=== PATIENT | female | born 1995 | race Two or more races ===

== ENCOUNTER 2022-07-04 14:48 | Emergency (ER) | payer OTHER, SELFPAY ==
[2022-07-04 15:25] VITALS: BP 108/63; PULSE 84; RESP 18; TEMP 36.7; O2SAT 98; BMI 17.9
--- NOTE | 2022-07-04 15:25 | ED_ITS ---
HPI - General Adult General Chief complaint: Nausea/Vomiting/Diarrhea <ROMANA Desai - Last Filed: 07/04/22 15:28> Stated complaint: Vomiting/Body aches/Tingling hands <ROMANA Desai - Last Filed: 07/04/22 15:28> Time Seen by Provider: 07/04/22 18:59 <ROMANA Desai - Last Filed: 07/04/22 15:28> Source: patient, RN notes reviewed and old records reviewed <James Ramirez - Last Filed: 07/04/22 19:11> Mode of arrival: ambulatory <James Ramirez - Last Filed: 07/04/22 19:11> Limitations: no limitations <James Ramirez - Last Filed: 07/04/22 19:11> History of Present Illness HPI narrative: 26-year-old female who denies any past medical history presents for evaluation of vomiting. Patient reports that she started vomiting last night around 6:00 p.m., about 24 hours ago. The symptoms progressed throughout the night and into today. She denies any abdominal pain, fevers. She states that this morning she was unable to keep anything down including water She was also experiencing ?tingling in my hands whenever I touched anything but that has gone away. ? Patient states that since she has been in the ER she has been able to tolerate chela ashwin without any further nausea or vomiting No other complaints or concerns at this time <James Ramirez - Last Filed: 07/04/22 19:11> Related Data Home medications: Previous Rx's Medication Instructions Recorded ondansetron 4 mg disintegrating 4 mg PO Q8H PRN nausea and 07/04/22 tablet vomiting #20 tabs <ROMANA Desai - Last Filed: 07/04/22 15:28> Allergies/adverse reactions: Allergies Allergy/AdvReac Type Severity Reaction Status Date / Time No Known Allergies Allergy Verified 07/04/22 15:28 <ROMANA Desai - Last Filed: 07/04/22 15:28> Review of Systems Constitutional: Constitutional: Reports as per HPI, Denies chills, Denies fatigue, Denies fever(s) and Denies headache(s) <James Ramirez - Last Filed: 07/04/22 19:11> ENT: Denies headache(s) < Last Filed: 07/04/22 19:11> Cardiovascular: Cardiovascular: Denies chest pain and Denies dyspnea < Last Filed: 07/04/22 19:11> Respiratory: Respiratory: Denies cough and Denies dyspnea < - Last Filed: 07/04/22 19:11> Gastrointestinal: Gastrointestinal: Denies abdominal pain, Denies constipation, Reports nausea and Reports vomiting < Last Filed: 07/04/22 19:11> Genitourinary: Genitourinary: Denies dysuria < Last Filed: 07/04/22 19:11> Neurologic: Denies headache(s) and Denies focal weakness < Last Filed: 07/04/22 19:11> Endocrine: Endocrine: Denies fatigue < Last Filed: 07/04/22 19:11> [facility] Social History Social History: Social History Alcohol intake: current Alcohol intake frequency: a few times a month Alcohol type: wine Smoked in Last 30 Days: No Use of substances other than those prescribed or required for medical reasons: No Advance Directives: No Advance Directives Information Provided: No <ROMANA Desai - Last Filed: 07/04/22 15:28> Physical Exam ED Vital Signs: Vital Signs - 24 hr 07/04/22 15:25 07/04/22 18:21 Temperature 98.0 F 98.2 F Pulse Rate 84 91 Respiratory Rate 18 18 Blood Pressure 108/63 111/64 Pulse Oximetry 98 100 Oxygen Delivery Method Room Air Room Air BMI result Body Mass Index 17.9 <ROMANA Desai - Last Filed: 07/04/22 15:28> Vital Signs - 24 hr 07/04/22 15:25 07/04/22 18:21 Temperature 98.0 F 98.2 F Pulse Rate 84 91 Respiratory Rate 18 18 Blood Pressure 108/63 111/64 Pulse Oximetry 98 100 Oxygen Delivery Method Room Air Room Air BMI result Body Mass Index 17.9 <James FaustinCrawford - Last Filed: 07/04/22 19:11> Const General: healthy appearing, comfortable, no acute distress, alert and awake < - Last Filed: 07/04/22 19:11> Nutritional Appearance: well nourished < Last Filed: 07/04/22 19:11> Orientation/consciousness: patient oriented x3 < Last Filed: 07/04/22 19:11> HENMT Head: Yes normocephalic and Yes atraumatic < - Last Filed: 07/04/22 19:11> Throat: Yes posterior oropharynx normal < - Last Filed: 07/04/22 19:11> Eyes Eyelids: Yes eyelids normal < Last Filed: 07/04/22 19:11> Conjunctivae: conjunctivae normal < Last Filed: 07/04/22 19:11> Sclerae: sclerae normal < Last Filed: 07/04/22 19:11> Corneas: corneas normal < Last Filed: 07/04/22 19:11> Pupils: Equal, round and reactive pupils present < Last Filed: 07/04/22 19:11> EOM: EOMs intact bilaterally < Last Filed: 07/04/22 19:11> Neck Neck: Yes full ROM < Last Filed: 07/04/22 19:11> Resp Effort & Inspection: normal respiratory effort, able to speak in complete sentences, no audible wheezes and not labored < Last Filed: 07/04/22 19:11> Auscultation: clear to auscultation bilaterally < Last Filed: 07/04/22 19:11> Cardio Rate: regular rate < Last Filed: 07/04/22 19:11> Rhythm: regular rhythm < - Last Filed: 07/04/22 19:11> GI Inspection: No distended < Last Filed: 07/04/22 19:11> Palpation (GI): Soft to palpation, not firm, nontender, no guarding and not rigid <James Ortizy - Last Filed: 07/04/22 19:11> Auscultation: normoactive bowel sounds <James Ortizy - Last Filed: 07/04/22 19:11> Skin General skin exam: no rashes or lesions noted and elasticity normal <Jamesparag Ortiz Last Filed: 07/04/22 19:11> Neuro General: patient oriented x3 <Jamesparag Ortizy - Last Filed: 07/04/22 19:11> Cranial nerves: Yes CN's II-XII intact bilaterally, Yes Equal, round and reactive pupils present and Yes Bilaterally intact EOM present <Jamesparag Ortiz Last Filed: 07/04/22 19:11> Cognition (Neuro): normal cognition <Jamesparag Ortiz Last Filed: 07/04/22 19:11> Extrem Other: Moving all extremities well without any obvious deformities <James Ramirez Last Filed: 07/04/22 19:11> Course Course Course Narrative: RME performed by Merly Evans PA-C. Patient is a 26 year old assigned female at presenting to the emergency department with nausea and vomiting. Labs and a swab ordered. Patient placed back in the waiting room pending room availability and results. <ROMANA Desai - Last Filed: 07/04/22 15:28> Medical Decision Making Medical Decision Making MDM Narrative: 26-year-old male in for evaluation of vomiting. Upon my evaluation she reports that all her symptoms have resolved. She had further nausea, she will drink chela ashwin. She denies any numbness, tingling, dizziness. Her labs are reviewed without any significant abnormality. The patient is not . I discussed all findings with the patient. She is requesting discharge as her workup is unremarkable. I have low suspicion for surgical abdomen she is nontender, currently asymptomatic. Will discharge patient with Zofran and she will follow-up with her PCP <James FaustinManoj Last Filed: 07/04/22 19:11> Differential Diagnosis Acute nausea/vomiting Viral gastroenteritis Peptic ulcer disease Cannabis hyperemesis syndrome <James Ramirez - Last Filed: 07/04/22 19:11> Lab Data Result Diagrams: 07/04/22 15:39 07/04/22 15:39 <ROMANA Desai - Last Filed: 07/04/22 15:28> Labs: Lab Results 07/04/22 07/04/22 07/04/22 Range/Units 15:39 15:39 15:39 WBC 5.8 (4.8-10.8) X10*3/uL RBC 4.28 (4.20-5.50) X10*6/uL Hgb 13.1 (12.0-16.0) g/dl Hct 38.4 (37.0-47.0) % MCV 89.7 (80.0-98.0) fL MCH 30.6 (27.0-33.0) pg MCHC 34.1 (31.0-35.0) g/dl RDW 11.7 (11.0-16.0) % Plt Count 226 (160-400) X10*3/uL MPV 9.8 (9.4-12.3) fL Immature Gran % (Auto) 0.2 (0.0-0.4) % Neut % (Auto) 82.7 H (45-73) % Lymph % (Auto) 10.7 L (20-40) % Sioux % (Auto) 6.4 (2-11) % Eos % (Auto) 0.0 (0-4) % Baso % (Auto) 0.0 (0-2) % Lymph # (Auto) 0.6 L (1.2-4.9) X10*3/uL [place] # (Auto) 0.4 (0.1-1.2) X10*3/uL Eos # (Auto) 0.0 (0.0-0.4) X10*3/uL Baso # (Auto) 0.0 (0.0-0.2) X10*3/uL Abs Immat Gran (auto) 0.01 (0.00-0.03) X10*3/uL Absolute Neuts (auto) 4.8 (2.0-8.3) x10*3/uL Absolute Nucleated RBC 0.000 (0.0-0.012) X10*3/uL Nucleated RBC % (auto) 0.0 (0.0-0.2) /100WBC Sodium 138 (135-145) mmol/L Potassium 3.6 (3.3-5.1) mmol/L Chloride 104 (96-108) mmol/L Carbon Dioxide 24 (22-29) mmol/L Anion Gap 14 (12-20) BUN 8 L (9-16) mg/dL Creatinine 0.72 (0.5-1.4) mg/dL Estim Creat Clear Calc 76.8 Estimated GFR > 60 Random Glucose 92 (60-115) mg/dL Calcium 8.7 (8.4-10.2) mg/dL Magnesium 2.1 (1.6-2.6) mg/dL Total Bilirubin 0.6 (0.0-1.0) mg/dL AST 17 (5-31) U/L ALT 7 (0-31) U/L Alkaline Phosphatase 83 (39-117) U/L Total Protein 7.1 (6.5-8.0) g/dL Albumin 4.2 (3.5-5.0) g/dL Beta HCG, Quant < 2 mIU/mL COVID-19 ([facility]) Negative (Negative) COVID-19 Clin Com See Note <ROMANA Desai - Last Filed: 07/04/22 15:28> Lab Results 07/04/22 07/04/22 07/04/22 Range/Units 15:39 15:39 15:39 WBC 5.8 (4.8-10.8) X10*3/uL RBC 4.28 (4.20-5.50) X10*6/uL Hgb 13.1 (12.0-16.0) g/dl Hct 38.4 (37.0-47.0) % MCV 89.7 (80.0-98.0) fL MCH 30.6 (27.0-33.0) pg MCHC 34.1 (31.0-35.0) g/dl RDW 11.7 (11.0-16.0) % Plt Count 226 (160-400) X10*3/uL MPV 9.8 (9.4-12.3) fL Immature Gran % (Auto) 0.2 (0.0-0.4) % Neut % (Auto) 82.7 H (45-73) % Lymph % (Auto) 10.7 L (20-40) % Sioux % (Auto) 6.4 (2-11) % Eos % (Auto) 0.0 (0-4) % Baso % (Auto) 0.0 (0-2) % Lymph # (Auto) 0.6 L (1.2-4.9) X10*3/uL Sioux # (Auto) 0.4 (0.1-1.2) X10*3/uL Eos # (Auto) 0.0 (0.0-0.4) X10*3/uL Baso # (Auto) 0.0 (0.0-0.2) X10*3/uL Abs Immat Gran (auto) 0.01 (0.00-0.03) X10*3/uL Absolute Neuts (auto) 4.8 (2.0-8.3) x10*3/uL Absolute Nucleated RBC 0.000 (0.0-0.012) X10*3/uL Nucleated RBC % (auto) 0.0 (0.0-0.2) /100WBC Sodium 138 (135-145) mmol/L Potassium 3.6 (3.3-5.1) mmol/L Chloride 104 (96-108) mmol/L Carbon Dioxide 24 (22-29) mmol/L Anion Gap 14 (12-20) BUN 8 L (9-16) mg/dL Creatinine 0.72 (0.5-1.4) mg/dL Estim Creat Clear Calc 76.8 Estimated GFR > 60 Random Glucose 92 (60-115) mg/dL Calcium 8.7 (8.4-10.2) mg/dL Magnesium 2.1 (1.6-2.6) mg/dL Total Bilirubin 0.6 (0.0-1.0) mg/dL AST 17 (5-31) U/L ALT 7 (0-31) U/L Alkaline Phosphatase 83 (39-117) U/L Total Protein 7.1 (6.5-8.0) g/dL Albumin 4.2 (3.5-5.0) g/dL Beta HCG, Quant < 2 mIU/mL COVID-19 ([facility]) Negative (Negative) COVID-19 Clin Com See Note <James Ramirez - Last Filed: 07/04/22 19:11> Discharge Plan Discharge Clinical Impression: Gastroenteritis <ROMANA Desai - Last Filed: 07/04/22 15:28> Patient Disposition: Home, Self-Care <ROMANA Desai - Last Filed: 07/04/22 15:28> Instructions: Acute Nausea and Vomiting (ED) <ROMANA Desai - Last Filed: 07/04/22 15:28> Additional Instructions: Drink lots of fluids, small sips at a time. Take ondansetron as needed for nausea and vomiting. Return for any new or worsening symptoms, especially fever, severe abdominal pains <ROMANA Desai - Last Filed: 07/04/22 15:28> Prescriptions: New ondansetron 4 mg tablet,disintegrating 4 mg PO Q8H PRN (Reason: nausea and vomiting) Qty: 20 0RF <ROMANA Desai - Last Filed: 07/04/22 15:28>
[2022-07-04 15:45] LABS: MANUAL DIFF FLAG NO
[2022-07-04 15:47] LABS: Hematocrit 38.4 % (37.0-47.0); Hemoglobin 13.1 g/dl (12.0-16.0); Imm Gran Abs Auto 0.01 X10*3/uL (0.00-0.03); Imm Gran Pct Auto 0.2 % (0.0-0.4); Lymphocytes Absolute Auto 0.6 X10*3/uL (1.2-4.9); Lymphocytes Percent Auto 10.7 % (20-40); Mean Corpuscular HGB Conc 34.1 g/dl (31.0-35.0); Mean Corpuscular Hemoglobin 30.6 pg (27.0-33.0); Mean Corpuscular Volume 89.7 fL (80.0-98.0); Mean Platelet Volume 9.8 fL (9.4-12.3); Monocytes Absolute Auto 0.4 X10*3/uL (0.1-1.2); Monocytes Percent Auto 6.4 % (2-11); Neutrophils Absolute Auto 4.8 x10*3/uL (2.0-8.3); Neutrophils Percent Auto 82.7 % (45-73); Platelet Count 226 X10*3/uL (160-400); Red Blood Count 4.28 X10*6/uL (4.20-5.50); Red Cell Distribution Width 11.7 % (11.0-16.0); White Blood Count 5.8 X10*3/uL (4.8-10.8)
[2022-07-04 16:01] LABS: COVID-19 Test Negative (Negative); IDNOW Serial# 08D9AD1C
[2022-07-04 16:09] LABS: Alanine Aminotransferase 7 U/L (0-31); Albumin Level 4.2 g/dL (3.5-5.0); Alkaline Phosphatase 83 U/L (39-117); Anion Gap 14 (12-20); Aspartate Amino Transferase 17 U/L (5-31); Bilirubin Total 0.6 mg/dL (0.0-1.0); Blood Urea Nitrogen 8 mg/dL (9-16); Calcium 8.7 mg/dL (8.4-10.2); Carbon Dioxide 24 mmol/L (22-29); Chloride 104 mmol/L (96-108); Creatinine Clr Calc Pharmacy 76.8; Estimated Glomerular Filt Rate > 60; Glucose Random 92 mg/dL (60-115); Magnesium 2.1 mg/dL (1.6-2.6); Potassium 3.6 mmol/L (3.3-5.1); Sodium 138 mmol/L (135-145); Total Protein 7.1 g/dL (6.5-8.0)
[2022-07-04 16:12] LABS: HCG Quantitative < 2 mIU/mL
[2022-07-04 18:21] VITALS: BP 111/64; PULSE 91; RESP 18; TEMP 36.8; O2SAT 100
== END 2022-07-04 19:18 | disposition home or self-care (01) ==
PROVIDERS: Physician Assistant Medical; Emergency Provider Emergency Medicine
DX: K52.9 Noninfective gastroenteritis and colitis, unspecified (principal); R11.2 Nausea with vomiting, unspecified; R20.2 Paresthesia of skin; Z20.822 Contact with and (suspected) exposure to COVID-19
CPT/HCPCS: 80053; 83735; 84702; 85025; 87635; 99283; 99284